=== PATIENT | male | born 1995 | race African-American/Black ===

== ENCOUNTER 2021-07-05 22:35 | Emergency (ER) | payer SELFPAY ==
[~2021-07-05] VITALS: Ht 180.3 cm; Wt 81.6 kg
[2021-07-05 22:44] VITALS: BP 128/79
== END 2021-07-06 02:54 | disposition home or self-care (01) ==
LOC: ER 22:35
DX: M54.59 Other low back pain (principal); M54.2 Cervicalgia; V43.62XA Car passenger injured in collision with other type car in traffic accident, initial encounter; Y93.89 Activity, other specified; Y92.410 Unspecified street and highway as the place of occurrence of the external cause; Y99.8 Other external cause status
CPT/HCPCS: 72040; 72070; 72100